=== PATIENT | male | born 1990 | race Caucasian/White ===

== ENCOUNTER 2016-07-27 10:08 | Emergency (ER) | payer OTHER ==
[~2016-07-27] VITALS: Ht 177.8 cm; Wt 59.1 kg
[2016-07-27 10:11] VITALS: BP 121/76; PULSE 79; TEMP 97.8
[2016-07-27] MEDS ORDERED: REVIA 50MG TABL50 MG PO (10:14)
[2016-07-27] MEDS ORDERED: IBU800 M1 PO (11:06)
== END 2016-07-27 11:46 | disposition home or self-care (01) ==
LOC: COL.ER 10:08
DX: S46.911A Strain of unspecified muscle, fascia and tendon at shoulder and upper arm level, right arm, initial encounter (principal); V43.52XA Car driver injured in collision with other type car in traffic accident, initial encounter; Y92.410 Unspecified street and highway as the place of occurrence of the external cause